=== PATIENT | female | born 1960 | race Hispanic/Latino ===

== ENCOUNTER 2019-01-21 15:24 | Emergency (ER) | payer SELFPAY ==
--- NOTE | 2019-01-21 15:55 | RAD ---
CHEST 1 VIEW: HISTORY: Chest pain. COMPARISON: Radiograph 04/03/2019. FINDINGS: Lungs are clear. No pneumothorax or effusion. Cardiac silhouette and mediastinal contours are withi n normal limits. IMPRESSION: No acute intrathoracic abnormality. POS: CET
--- NOTE | 2019-01-21 16:48 | ULT ---
RIGHT UPPER QUADRANT ULTRASOUND: 01/21/19 INDICATION: Abdominal pain and vomiting. COMPARISON: Prior exam dated 12/29/15. FINDINGS: Again seen is fatty infiltration of the liver and a large gallstone within the gallbladder. No gallbl adder wall thickening, pericholecystic fluid or sonographic Wall's sign is present. Common bile barby t is normal measuring 4.1 mm. The right kidney measures 9.3 cm in length. The pancreas is largely obs cured. IMPRESSION: Stable fatty liver and cholelithiasis without sonographic evidence of acute cholecystitis. POS: TPC
[2019-01-21 16:51] LABS: #Basophils 0.1 thou/uL (0.0-0.2); #Eosinphils 0.1 thou/uL (0.0-0.7); #Monocytes 0.4 thou/uL (0.11-0.59); #Neutrophils 4.2 thou/uL (1.40-6.50); %Basophils 0.9 % (0.0-1.0); %Eosinophils 1.5 % (0.0-10.0); %Lymphocytes 38.7 % (21.0-51.0); %Monocytes 5.2 % (0.0-10.0); %Neutrophils 53.8 % (42.0-75.0); Hemoglobin 13.7 g/dL (12.0-16.0); Mean Corpuscular Hemoglobin 30.9 pg (27.0-31.0); Mean Corpuscular Volume 90.9 fL (78.0-98.0); Mean Platelet Volume 9.7 fL (7.4-10.4); Platelet Count 222 thou/uL (130-400); RBC Distribution Width 11.8 % (11.5-14.5); Red Blood Cell (RBC) Count 4.44 mill/uL (4.20-5.40); White Blood Cell (WBC) Count 7.7 thou/uL (4.8-10.8)
[2019-01-21 17:14] LABS: ALT (SGPT) 13 U/L (8-55); AST (SGOT) 12 U/L (5-34); Albumin 4.3 g/dL (3.5-5.0); Alkaline Phosphatase 84 U/L (40-150); Anion Gap 14 mmol/L (10-20); BUN (Urea Nitrogen) 10 mg/dL (9.8-20.1); Bilirubin, Total 0.2 mg/dL (0.2-1.2); CK (CPK) 22 U/L (29-168); Calc. Creatinine Clearance 0 mL/min (70-130); Calcium 9.6 mg/dL (7.8-10.44); Carbon Dioxide 26 mmol/L (22-29); Chloride 101 mmol/L (98-107); Estimated GFR-MDRD Greater than 90; Globulin 3.3 g/dL (2.4-3.5); Glucose 124 mg/dL (70-105); Lipase 20 U/L (8-78); Potassium 3.9 mmol/L (3.5-5.1); Protein, Total 7.6 g/dL (6.0-8.3); Sodium 137 mmol/L (136-145)
[2019-01-21] MEDS ORDERED: Morphine 4 MG/ML VIAL ONE (17:14)
[2019-01-21] MEDS ORDERED: Ondansetron PF 4 MG/2 ML Vial ONE (17:14)
--- NOTE | 2019-01-23 22:33 | EKG ---
Test Reason : Blood Pressure : / mmHG Vent. Rate : 080 BPM Atrial Rate : 080 BPM P-R Int : 148 ms QRS Dur : 078 ms QT Int : 374 ms P-R-T Axes : 042 009 011 degrees QTc Int : 431 ms Normal sinus rhythm Cannot rule out Anterior infarct , age undetermined Abnormal ECG Confirmed by MORE ANTHONY, ISAURO Sue ([id number]), magazine editor REGINA DOWELL ([id number]) on 01/23/2019 10:32:43 PM Referred By: Confirmed By:ISAURO AGUERO MD
== END 2019-01-21 18:49 | disposition home or self-care (01) ==
LOC: ERS 15:24
DX: K80.20 Calculus of gallbladder without cholecystitis without obstruction (principal); E11.9 Type 2 diabetes mellitus without complications; I10 Essential (primary) hypertension; F32.9 Major depressive disorder, single episode, unspecified; Z79.84 Long term (current) use of oral hypoglycemic drugs; Z79.899 Other long term (current) drug therapy
CPT/HCPCS: 36415; 71045; 76705; 80053; 82550; 83690; 84484; 85025; 93005; 94760; 96361; 96374; 96375; J2270; J2405

== ENCOUNTER 2019-01-23 13:01 | Observation (INO) | payer SELFPAY ==
[2019-01-23 13:47] LABS: #Basophils 0.1 thou/uL (0.0-0.2); #Eosinphils 0.1 thou/uL (0.0-0.7); #Lymphocytes 2.2 thou/uL (1.20-3.40); #Monocytes 0.4 thou/uL (0.11-0.59); #Neutrophils 5.4 thou/uL (1.40-6.50); %Basophils 0.6 % (0.0-1.0); %Eosinophils 1.8 % (0.0-10.0); %Lymphocytes 27.2 % (21.0-51.0); %Monocytes 4.4 % (0.0-10.0); %Neutrophils 66.1 % (42.0-75.0); Hemoglobin 14.4 g/dL (12.0-16.0); Mean Corpuscular HGB CONC 33.8 g/dL (32.0-36.0); Mean Corpuscular Hemoglobin 30.9 pg (27.0-31.0); Mean Corpuscular Volume 91.4 fL (78.0-98.0); Platelet Count 229 thou/uL (130-400); RBC Distribution Width 11.8 % (11.5-14.5); Red Blood Cell (RBC) Count 4.65 mill/uL (4.20-5.40); White Blood Cell (WBC) Count 8.2 thou/uL (4.8-10.8)
[2019-01-23] MEDS ORDERED: Morphine 4 MG/ML VIAL ONE ×2 (13:48→15:38)
[2019-01-23] MEDS ORDERED: Ondansetron PF 4 MG/2 ML Vial ONE (13:48)
[2019-01-23 14:14] LABS: ALT (SGPT) 14 U/L (8-55); AST (SGOT) 12 U/L (5-34); Albumin 4.2 g/dL (3.5-5.0); Alkaline Phosphatase 85 U/L (40-150); Anion Gap 14 mmol/L (10-20); BUN (Urea Nitrogen) 12 mg/dL (9.8-20.1); Bilirubin, Total 0.2 mg/dL (0.2-1.2); CK (CPK) 26 U/L (29-168); Calc. Creatinine Clearance 0 mL/min (70-130); Calcium 9.3 mg/dL (7.8-10.44); Carbon Dioxide 26 mmol/L (22-29); Chloride 101 mmol/L (98-107); Estimated GFR-MDRD 83; Globulin 3.5 g/dL (2.4-3.5); Glucose 252 mg/dL (70-105); Lipase 28 U/L (8-78); Potassium 3.8 mmol/L (3.5-5.1); Protein, Total 7.7 g/dL (6.0-8.3); Sodium 137 mmol/L (136-145)
--- NOTE | 2019-01-23 14:28 | ULT ---
EXAM: Right upper quadrant ultrasound PROVIDED CLINICAL HISTORY: Right upper quadrant pain COMPARISON: None FINDINGS: Visualized portions of the pancreas appear normal. Liver demonstrates no mass or intrahepatic biliary ductal dilatation. Common duct is nondilated. Gallbladder demonstrates a gallstone within the region of the gallbladder neck without wall thickening or pericholecystic fluid. Right kidney demonst rates no hydronephrosis or mass. IMPRESSION: Cholelithiasis without evidence for acute findings related to the gallbladder sonographically.
[2019-01-23 14:56] LABS: Bilirubin Negative (Negative); Blood, Urine Negative (Negative); Clarity Clear (Clear); Glucose, Urine (Dipstick) 300 mg/dL (Negative); Leukocyte Negative Leu/uL (Negative); Nitrite Negative (Negative); Protein, Urine (Dipstick) Negative (Neg-Trace); Urobilinogen Normal mg/dL (Less than 2)
[2019-01-23 16:39] LABS: PTT 29.3 SEC (22.9-36.1); Prothrombin Time 13.3 SEC (12.0-14.7)
[2019-01-23] MEDS ORDERED: Acetaminophen 325 MG TAB PO PRN (17:33)
[2019-01-23] MEDS ORDERED: Calcium Carbonate 500 MG ChewTAB PO PRN (17:33)
[2019-01-23] MEDS ORDERED: Promethazine HCl 25 MG/ML VIAL IM PRN (17:33)
[2019-01-23] MEDS ORDERED: Ondansetron PF 4 MG/2 ML Vial IVP PRN (17:33)
[2019-01-23] MEDS ORDERED: hydrALAZINE 20 MG/ML VIAL SLOW IVP PRN (17:33)
[2019-01-23] MEDS ORDERED: Acetaminophen 1,000 MG in Premix Bag 1 BAG IVPB SCH (17:33)
[2019-01-23] MEDS ORDERED: Dextrose 5% in Water 1,000 ML IV PRN (17:33)
[2019-01-23] MEDS ORDERED: Dextrose 50% Abboject 50 ML SYRINGE SLOW IVP PRN (17:33)
[2019-01-23] MEDS ORDERED: Mag-Al 1200 mg/1200 mg/30 ML UDCUP PO PRN (17:33)
[2019-01-23 17:48] LABS: Lactic Acid 1.1 mmol/L (0.5-2.2)
--- NOTE | 2019-01-23 17:55 | HP ---
REQUESTING PHYSICIAN: Dr. Goddard. ATTENDING SURGEON: Dr. Tanner. CONSULTATIONS: None. HISTORY OF PRESENT ILLNESS: The patient is a 58-year-old woman, who has had intermittent right upper quadrant pain for the last several weeks. It increased two days ago, which brought her to the emergency department, where she underwent evaluation and examination and was noted to have cholelithiasis without cholecystitis. Her pain had resolved, and she was able to be discharged home. Today, at 11:30, the patient had a fatty meal, which exacerbated her pain significant enough that she returned to the emergency department, where she underwent evaluation again and was noted to have a solitary stone in her gallbladder, at which time we were asked to evaluate the patient for possible cholecystectomy. The patient had nausea and vomiting on and again today. She denies fevers, chills, night sweats, or unexplained weight loss. The patient denied diarrhea. ALLERGIES: NONE. CURRENT MEDICATIONS: 1. Hydrochlorothiazide. 2. Metformin. 3. Glipizide. PAST MEDICAL HISTORY: Hypertension, diabetes, and depression. PAST SURGICAL HISTORY: None. SOCIAL HISTORY: The patient lives independently at home with family. She denies drug, tobacco, or alcohol use. REVIEW OF SYSTEMS: A 10-point review of systems is negative as otherwise stated. PHYSICAL EXAMINATION: VITAL SIGNS: Blood pressure 140/97, heart rate 81, respirations 20, oxygen saturation 97% on room air, and temperature is 98.5. GENERAL: The patient is resting comfortably in bed. She is Icelandic-speaking only, but with the use of the sign language interpreter, the exam was able to be completed. The patient appears comfortable. HEENT: Head is normocephalic and atraumatic. Eyes, extraocular motion intact. PERRLA bilaterally. Ears are atraumatic without discharge. Nose is atraumatic without discharge. Oropharynx is clear. NECK: Nontender. Trachea is midline. There is no JVD. CHEST: Clear to auscultation with good inspiratory and expiratory effort. HEART: Regular rate and rhythm. ABDOMEN: Soft, flat, nontender with active bowel sounds. The patient has slight tenderness to palpation to the right upper quadrant, but she states that her pain has markedly improved since being here in the emergency department again. EXTREMITIES: Neurovascularly intact x4. There is no evidence of pitting edema. LABORATORY FINDINGS: White blood cell count 8.2, hemoglobin 14.4, hematocrit 42.5, and platelets 229. Sodium 137, potassium 3.8, chloride 101, CO2 of 26, BUN 12, creatinine 0.72, glucose 252, total bilirubin 0.2, AST 12, ALT 14, and alkaline phosphatase 85. CK 26, troponin less than 0.010. Lactic acid 3.2. RADIOGRAPHIC FINDINGS: Right upper quadrant ultrasound shows cholelithiasis without evidence for acute findings related to gallbladder sonographically. ASSESSMENT: 1. Right upper quadrant pain, intermittent, increasing. 2. Nausea and vomiting, related to #1. 3. Cholelithiasis. 4. History of diabetes 5. Lactic acidosis PLAN: Plan will be to keep the patient n.p.o. and consent her for laparoscopic cholecystectomy. We will do IV hydration, sliding scale insulin and recheck lactic acid. The patient and family were agreeable to this plan. She will be admitted to the surgical floor, and after the appropriate n.p.o. time, we will take her to the operating room most likely later today. Keep her overnight and she will likely be able to be discharged home tomorrow. The evaluation, examination, and laboratory and radiographic findings were discussed with Dr. Tanner prior to this dictation. Job ID: [id number] [id number]
[2019-01-23] MEDS ORDERED: Morphine 4 MG/ML VIAL IV PRN (18:07)
[2019-01-23] MEDS ORDERED: Sodium Chloride 0.9% 1,000 ML IV SCH (18:08)
[2019-01-23] MEDS: Lactated Ringer's 1,000 ML IV SCH (18:35)
[2019-01-23] MEDS: Ketorolac Tromethamine 30 MG/ML VIAL IVP SCH (18:36)
[2019-01-23] MEDS: Piperacillin/Tazobactam 3.375 GM in Sodium Chloride 0.9% 100 ML IVPB SCH (18:36)
[2019-01-23] MEDS: Famotidine 20 MG TAB PO SCH (22:31)
[2019-01-23] MEDS: Famotidine/PF 20 mg/2ml Vial SLOW IVP SCH (22:33)
[2019-01-23 23:04] VITALS: BMI 26.4
[2019-01-24] MEDS: Piperacillin/Tazobactam 3.375 GM in Sodium Chloride 0.9% 100 ML IVPB SCH ×2 (00:22→05:03)
[2019-01-24] MEDS: Ketorolac Tromethamine 30 MG/ML VIAL IVP SCH ×2 (00:22→05:03)
--- NOTE | 2019-01-24 00:52 | PRG ---
DATE OF SERVICE: 01/24/2019 SUBJECTIVE: Mrs. Alejandro is a 58-year-old female who had come into the ER for evaluation of right upper quadrant pain. Patient sustained cholelithiasis and cholecystitis. Patient reported to have been doing better. Pain is well controlled. Vital signs stable. She developed no fever or shortness of breath. She reports no nausea or vomiting. OBJECTIVE: GENERAL: Patient is lying down in bed, comfortable with no acute distress. VITAL SIGNS: Stable. LUNGS: Clear bilaterally. HEART: Regular rate and rhythm. ABDOMEN: Soft, nondistended with normal bowel sounds with mild tenderness on the right upper quadrant on palpation. PLAN: Patient is continued on n.p.o. with IV pain medication. Ready to go to the OR for cholecystectomy with Dr. Tanner tomorrow. Recheck lactic acid and continue supportive care. Job ID: [id number]
[2019-01-24] MEDS: Lactated Ringer's 1,000 ML IV SCH (05:03)
[2019-01-24] MEDS ORDERED: Midazolam HCl 2 mg/2 ml Vial ONE (07:30)
[2019-01-24] MEDS ORDERED: Fentanyl 100 MCG/2 ML VIAL ONE (07:30)
[2019-01-24] MEDS ORDERED: HYDROmorphone 0.5 MG/0.5 ML SYRINGE ONE (07:30)
[2019-01-24] MEDS ORDERED: Bupivacaine/Epinephrine 0.25% 30 ML VIAL ONE (07:39)
[2019-01-24 08:01] LABS: ALT (SGPT) 13 U/L (8-55); AST (SGOT) 14 U/L (5-34); Alkaline Phosphatase 82 U/L (40-150); Anion Gap 12 mmol/L (10-20); BUN (Urea Nitrogen) 10 mg/dL (9.8-20.1); Bilirubin, Total 0.5 mg/dL (0.2-1.2); Calc. Creatinine Clearance 94 mL/min (70-130); Calcium 9.1 mg/dL (7.8-10.44); Carbon Dioxide 27 mmol/L (22-29); Chloride 105 mmol/L (98-107); Estimated GFR-MDRD 83; Globulin 3.1 g/dL (2.4-3.5); Glucose 154 mg/dL (70-105); Lipase 19 U/L (8-78); Potassium 3.6 mmol/L (3.5-5.1); Protein, Total 7.1 g/dL (6.0-8.3); Sodium 140 mmol/L (136-145)
[2019-01-24] MEDS ORDERED: Promethazine HCl 25 MG/ML VIAL IM PRN ×2 (08:25→08:43)
[2019-01-24] MEDS ORDERED: Ondansetron HCl/PF 4 MG/2 ML Vial IVP PRN ×2 (08:25→08:43)
[2019-01-24] MEDS ORDERED: Promethazine HCl 25 MG/ML VIAL SLOW IVP PRN ×2 (08:25→08:43)
[2019-01-24] MEDS ORDERED: Meperidine HCl/PF 25 MG/ML VIAL SLOW IVP PRN (08:25)
[2019-01-24] MEDS ORDERED: Ketorolac Tromethamine 30 MG/ML VIAL IVP PRN (08:25)
[2019-01-24] MEDS ORDERED: HYDROmorphone 2 MG/ML VIAL SLOW IVP PRN (08:43)
[2019-01-24] MEDS ORDERED: Ibuprofen 600 MG TAB PO PRN (09:14)
[2019-01-24] MEDS ORDERED: traMADol HCl 50 MG TAB PO PRN ×2 (09:15)
[2019-01-24] MEDS ORDERED: Acetaminophen 325 MG TAB PO SCH (10:00)
[2019-01-24] MEDS ORDERED: Ondansetron PF 4 MG/2 ML Vial ONE (10:15)
[2019-01-24] MEDS ORDERED: Dexamethasone 20 MG/5 ML VIAL ONE (10:15)
[2019-01-24] MEDS ORDERED: PROPOFOL 200 MG/20 ML VIAL ONE (10:15)
[2019-01-24] MEDS ORDERED: Lidocaine 1% PF 5 ML VIAL ONE (10:15)
[2019-01-24] MEDS ORDERED: Ketorolac Tromethamine 30 MG/ML VIAL ONE (10:15)
[2019-01-24] MEDS ORDERED: Glycopyrrolate 0.2 MG/ML 5 ML SYRINGE ONE (10:15)
[2019-01-24] MEDS ORDERED: Rocuronium Bromide 10 MG/ML (10ML VIAL) ONE (10:15)
--- NOTE | 2019-01-24 10:15 | OP ---
DATE OF PROCEDURE: 01/24/2019 PREOPERATIVE DIAGNOSIS: Acute cholecystitis with cholelithiasis. POSTOPERATIVE DIAGNOSIS: Acute cholecystitis with cholelithiasis. OPERATION PERFORMED: Laparoscopic cholecystectomy. ANESTHESIA: General endotracheal. ESTIMATED BLOOD LOSS: 10 mL. FLUIDS GIVEN: 1000 mL crystalloids. COUNTS: Sponge and instrument counts were verified as correct x2. COMPLICATIONS: None apparent at operation. INDICATIONS FOR OPERATION: A 58-year-old woman presented with recurrent epigastric right upper quadrant abdominal pain, which was postprandial in nature. Clinical radiographic examination was consistent with acute cholecystitis with cholelithiasis, for which the patient was brought to the operating room for cholecystectomy. Findings are consistent with dilated gallbladder with solitary gallstone in the right upper quadrant that was partially encased by omental adhesions. DESCRIPTION OF PROCEDURE: Informed consent was obtained from the patient. She was brought to the operating room, placed in supine position. Following general anesthesia, abdomen was sterilely prepped and draped in usual fashion. The skin below the umbilicus was infiltrated with 0.25% Marcaine with epinephrine. A small curvilinear infraumbilical incision was made using 11 scalpel. Umbilical stalk grasped with Onur and elevated. Veress needle was inserted through incision and placed in the peritoneal cavity, through which the abdomen was insufflated with 2 L of CO2 gas. Intraabdominal pressure was noted at 1 mmHg. Following abdominal insufflation, Veress needle was removed, and a 5 mm trocar was introduced using a Visiport under laparoscopy. Laparoscopy revealed the right upper quadrant partially encased by omental adhesions. Under direct laparoscopy, a 12 mm epigastric and two 5 mm right lateral subcostal ports were placed after the overlying skin was infiltrated with 0.25% Marcaine with epinephrine. Appropriate incision was made. The patient was placed in a reverse Trendelenburg position, rotated to her left. I introduced a Prestige grasper through the right lateral subcostal port grasping the fundus of the gallbladder, which was elevated cephalad. Omental adhesions were then taken down from the remainder of the gallbladder using a [place] with cautery, achieving good hemostasis. A second Prestige grasper was introduced through the right medial subcostal port grasping the Andrew pouch, which was retracted laterally. Cystic duct was carefully dissected free from surrounding structures at the triangle of Calot. The duct was divided between clips applying 2 clips proximally and 1 clip at the junction of the cystic duct and gallbladder. Cystic artery was dissected free from surrounding structures and divided between clips in a similar fashion. The gallbladder itself was removed from the liver bed using cautery. Gallbladder was delivered of the abdominal cavity using EndoCatch. Operative site was inspected for good hemostasis. No bile stains noted. Finding, no other pathology. Laparoscopy was terminated. Fascia of the epigastric port was closed using 0 Vicryl suture and Endoclosure device on the laparoscopy. The abdomen was desufflated and all ports and instruments were removed and accounted for. Skin incisions were closed using 4-0 Monocryl suture in subcuticular fashion. Dermabond was applied over incisional closure. The patient tolerated the operation without any apparent complication and was returned to recovery room in satisfactory condition. Job ID: [id number]
[2019-01-24] MEDS: Famotidine/PF 20 mg/2ml Vial SLOW IVP SCH (11:09)
[2019-01-24] MEDS: Famotidine 20 MG TAB PO SCH (11:09)
[2019-01-24] MEDS: Insulin Regular 300 UNITS/3 ML VIAL SC PRN ×2 (12:34→16:01)
[2019-01-24] MEDS: Acetaminophen 500 MG TAB PO SCH ×2 (12:38→17:41)
[2019-01-24 17:20] VITALS: TEMP 97.5
[2019-01-24 17:22] VITALS: BP 129/84
--- NOTE | 2019-01-24 17:33 | DIS ---
DATE OF ADMISSION: 01/23/2019 DATE OF DISCHARGE: 01/24/2019 This is Lee Peters PA-C dictating a report for Yung Tanner DO. ADMISSION DIAGNOSES: 1. Acute cholecystitis with cholelithiasis. 2. Abdominal pain secondary to above. CONSULTATIONS: None. PROCEDURE PERFORMED: Laparoscopic cholecystectomy. SUMMARY: The patient presented to the emergency department with intermittent right upper quadrant pain for the last several weeks that had increased markedly over this week. She had presented to the emergency department, underwent evaluation on and was able to be discharged home. She returned yesterday with significant pain. At this time, we felt it was best that we have her undergo her procedure now rather than try to have her wait any longer. The patient underwent her above procedure. She tolerated it well. At time of discharge, she was ambulating. She was tolerating a diet and her pain was controlled. She will follow up with Dr. Tanner in his clinic in 2 weeks or sooner as needed. Job ID: [id number]
--- NOTE | 2019-01-30 15:54 | EKG ---
Test Reason : Blood Pressure : / mmHG Vent. Rate : 093 BPM Atrial Rate : 093 BPM P-R Int : 140 ms QRS Dur : 080 ms QT Int : 360 ms P-R-T Axes : 046 022 024 degrees QTc Int : 447 ms Normal sinus rhythm Cannot rule out Anterior infarct , age undetermined Abnormal ECG Confirmed by GAB GUSTAFSON ([id number]), school photograph editor MILAGROS MELGOZA ([id number]) on 01/30/2019 3:53:55 PM Referred By: Confirmed By:GAB GUSTAFSON
== END 2019-01-24 19:22 | disposition home or self-care (01) ==
LOC: ERS 13:01 → SURG B 17:24
PROVIDERS: ADMIT Surgery; ATTEND Surgery
PROC: 0FT44ZZ Resection of Gallbladder, Percutaneous Endoscopic Approach (ICD-10-PCS; principal; 2019-01-24)
DX: K80.12 Calculus of gallbladder with acute and chronic cholecystitis without obstruction (principal); E11.9 Type 2 diabetes mellitus without complications; Z79.84 Long term (current) use of oral hypoglycemic drugs; Z79.899 Other long term (current) drug therapy
CPT/HCPCS: 36415; 36416; 76705; 80053; 81003; 82550; 83605; 83690; 84484; 85025; 85610; 85730; 88304; 93005; 94760; 96361; 96365; 96366; 96374; 96375; 96376; G0378; J1100; J1170; J1815; J1885; J2001; J2250; J2270; J2405; J2543; J2704; J3010; J3490; S0028

== ENCOUNTER 2019-01-31 09:26 | Emergency (ER) | payer SELFPAY ==
[2019-01-31 10:06] LABS: #Eosinphils 0.2 thou/uL (0.0-0.7); #Lymphocytes 2.8 thou/uL (1.20-3.40); #Monocytes 0.5 thou/uL (0.11-0.59); #Neutrophils 6.3 thou/uL (1.40-6.50); %Basophils 0.3 % (0.0-1.0); %Eosinophils 2.1 % (0.0-10.0); %Lymphocytes 28.2 % (21.0-51.0); %Monocytes 4.7 % (0.0-10.0); %Neutrophils 64.7 % (42.0-75.0); Hemoglobin 14.4 g/dL (12.0-16.0); Mean Corpuscular Hemoglobin 31.1 pg (27.0-31.0); Mean Corpuscular Volume 91.5 fL (78.0-98.0); Mean Platelet Volume 9.3 fL (7.4-10.4); Platelet Count 233 thou/uL (130-400); RBC Distribution Width 11.9 % (11.5-14.5); Red Blood Cell (RBC) Count 4.63 mill/uL (4.20-5.40); White Blood Cell (WBC) Count 9.7 thou/uL (4.8-10.8)
[2019-01-31] MEDS ORDERED: Ondansetron PF 4 MG/2 ML Vial ONE (10:06)
[2019-01-31] MEDS ORDERED: Morphine 4 MG/ML VIAL ONE (10:21)
[2019-01-31 10:30] LABS: ALT (SGPT) 19 U/L (8-55); AST (SGOT) 14 U/L (5-34); Albumin 4.3 g/dL (3.5-5.0); Alkaline Phosphatase 94 U/L (40-150); Anion Gap 18 mmol/L (10-20); BUN (Urea Nitrogen) 18 mg/dL (9.8-20.1); Bilirubin, Total 0.4 mg/dL (0.2-1.2); Calc. Creatinine Clearance 0 mL/min (70-130); Calcium 9.3 mg/dL (7.8-10.44); Carbon Dioxide 20 mmol/L (22-29); Chloride 105 mmol/L (98-107); Estimated GFR-MDRD Greater than 90; Globulin 3.3 g/dL (2.4-3.5); Glucose 127 mg/dL (70-105); Lipase 22 U/L (8-78); Potassium 4.1 mmol/L (3.5-5.1); Protein, Total 7.6 g/dL (6.0-8.3); Sodium 139 mmol/L (136-145)
[2019-01-31 10:36] LABS: Bacteria/HPF None Seen HPF (None Seen); Bilirubin Negative (Negative); Blood, Urine Negative (Negative); Clarity Clear (Clear); Glucose, Urine (Dipstick) Normal (Negative); Leukocyte 25 Leu/uL (Negative); Nitrite Negative (Negative); Protein, Urine (Dipstick) Negative (Neg-Trace); RBC/HPF 0-3 HPF (0-3); Squamous Epithelial 0-3 HPF (0-3); WBC/HPF 0-3 HPF (0-3)
--- NOTE | 2019-01-31 11:48 | CT ---
EXAM: Abdomen and pelvic CT scan with contrast: HISTORY: Right upper quadrant pain status post cholecystectomy 7 days ago COMPARISON: None FINDINGS: Minimal linear parenchymal changes in the lung bases evidence for mild subsegmental atelectasis. Liver: Unremarkable. Gallbladder:Status post cholecystectomy with minimal fat stranding in the gallbladder fossa. No assoc iated abscess or abnormal fluid collection. Pancreas:Unremarkable Spleen:Unremarkable. Adrenal glands:Unremarkable. Kidneys:No renal calculus or acute obstruction. No solid or cystic renal mass. No evidence for bowel obstruction. No CT evidence for acute appendicitis. The urinary bladder is unremarkable. Reproductive system:Unremarkable No abscess, adenopathy, or abnormal fluid collection within the abdomen or pelvis. IMPRESSION: Minimal bibasilar linear parenchymal changes evidence for minimal subsegmental atelectasis. Unremarkable recent postop cholecystectomy change.
[2019-01-31] MEDS ORDERED: ISOVUE-370 76%-LOCM 1 ML ONE (13:02)
== END 2019-01-31 12:57 | disposition home or self-care (01) ==
LOC: ERS 09:26
DX: R11.2 Nausea with vomiting, unspecified (principal); R19.7 Diarrhea, unspecified; E11.9 Type 2 diabetes mellitus without complications; I10 Essential (primary) hypertension; Z79.899 Other long term (current) drug therapy
CPT/HCPCS: 36415; 74177; 80053; 81003; 81015; 83690; 84484; 85025; 93005; 96361; 96374; 96375; J2270; J2405; Q9966

== ENCOUNTER 2020-04-25 22:47 | Emergency (ER) | payer SELFPAY ==
[2020-04-26] MEDS ORDERED: diphenhydrAMINE 50 MG/ML VIAL ONE (00:25)
[2020-04-26] MEDS ORDERED: Metoclopramide HCl 10 MG/2 ML VIAL ONE (00:25)
[2020-04-26] MEDS ORDERED: Acetaminophen 500 MG TAB ONE (00:25)
== END 2020-04-26 02:35 | disposition home or self-care (01) ==
LOC: ERS 22:47
DX: R51.9 Headache, unspecified (principal); U07.1 COVID-19; E11.9 Type 2 diabetes mellitus without complications; I10 Essential (primary) hypertension; Z79.84 Long term (current) use of oral hypoglycemic drugs; Z79.899 Other long term (current) drug therapy
CPT/HCPCS: 96365; 96366; 96375; J1200; J2765

== ENCOUNTER 2021-09-16 18:01 | Emergency (ER) | payer SELFPAY ==
[2021-09-16 18:39] LABS: #Basophils 0.1 thou/uL (0.0-0.2); #Eosinphils 0.1 thou/uL (0.0-0.7); #Lymphocytes 2.9 thou/uL (1.20-3.40); #Monocytes 0.5 thou/uL (0.11-0.59); #Neutrophils 6.7 thou/uL (1.40-6.50); %Basophils 0.8 % (0.0-1.0); %Lymphocytes 28.5 % (21.0-51.0); %Monocytes 4.4 % (0.0-10.0); %Neutrophils 65.5 % (42.0-75.0); Hemoglobin 14.2 g/dL (12.0-16.0); Mean Corpuscular Hemoglobin 31.6 pg (27.0-31.0); Mean Corpuscular Volume 93.1 fL (78.0-98.0); Mean Platelet Volume 9.9 fL (7.4-10.4); Platelet Count 197 thou/uL (130-400); RBC Distribution Width 11.7 % (11.5-14.5); Red Blood Cell (RBC) Count 4.49 mill/uL (4.20-5.40); White Blood Cell (WBC) Count 10.3 thou/uL (4.8-10.8)
[2021-09-16] MEDS ORDERED: Lidocaine 2% Viscous Solution 10 ML, Aluminum & Magnesium Hydroxide 30 ML SSW SCH (18:45)
[2021-09-16] MEDS ORDERED: Mag-Al 1200 mg/1200 mg/30 ML UDCUP ONE (19:00)
[2021-09-16] MEDS ORDERED: Lidocaine Viscous Sol 2% 15 ml UD Cup ONE (19:00)
[2021-09-16 19:06] LABS: ALT (SGPT) 14 U/L (8-55); AST (SGOT) 17 U/L (5-34); Albumin 4.1 g/dL (3.4-4.8); Alkaline Phosphatase 78 U/L (40-110); Anion Gap 17 mmol/L (10-20); BUN (Urea Nitrogen) 13 mg/dL (9.8-20.1); Bilirubin, Total Less than 0.2 mg/dL (0.2-1.2); Calc. Creatinine Clearance 0 mL/min (70-130); Calcium 9.3 mg/dL (7.8-10.44); Carbon Dioxide 22 mmol/L (23-31); Chloride 103 mmol/L (98-107); Globulin 4.2 g/dL (2.4-3.5); Glucose 353 mg/dL (80-115); Lipase 59 U/L (8-78); Potassium 4.2 mmol/L (3.5-5.1); Protein, Total 8.3 g/dL (5.8-8.1); Sodium 138 mmol/L (136-145)
== END 2021-09-16 19:56 | disposition home or self-care (01) ==
LOC: ERS 18:01
DX: R10.13 Epigastric pain (principal); E11.9 Type 2 diabetes mellitus without complications; I10 Essential (primary) hypertension; E78.00 Pure hypercholesterolemia, unspecified; Z79.84 Long term (current) use of oral hypoglycemic drugs
CPT/HCPCS: 71045; 80053; 83690; 84484; 85025; 93005; 94760